=== PATIENT | female | born 1965 | race Caucasian/White ===

== ENCOUNTER 2019-08-12 17:35 | Observation (INO) ==
--- NOTE | 2019-08-12 18:03 | Diag Imaging Result Doc PS360 ---
EXAM: CHEST-PORTABLE 08/12/2019 HISTORY: stroke like symptoms TECHNIQUE: AP portable at 1757 COMMENT: There is no evidence of acute cardiac or pulmonary disease. Compared to 03/12/2013 the lungs are not as well-expanded but otherwise are has been no significant change. IMPRESSION: No acute disease. Electronically signed by Jewel Hall 08/12/2019 6:01 PM
--- NOTE | 2019-08-12 18:12 | Diag Imaging Result Doc PS360 ---
EXAM: CT HEAD W/O CONTRAST 08/12/2019 HISTORY: STROKE SYMPTOMS TECHNIQUE: This exam was performed using automated exposure control, adjustment of mA or kV according to patient size, and/or use of iterative reconstruction technique. COMMENT: There is no evidence of mass effect, bleed, or abnormal extra-axial fluid collection. The calvarium is intact. The visualized paranasal sinuses are clear. IMPRESSION: No evidence of acute intracranial disease. Electronically signed by Jewel Hall 08/12/2019 6:10 PM
[2019-08-12 18:50] LABS: BASO# 0.02 X1000 (0.0-0.2); BASO% 0.2 % (0.0-0.8); EOS# 0.12 X1000 (0.0-0.7); EOS% 1.3 % (0.0-10.0); HEMATOCRIT 39.6 % (37.0-47.0); HEMOGLOBIN 13.3 g/dL (12.0-16.0); IMM GRAN# 0.02 X1000 (0.0-0.04); IMM GRAN% 0.2 % (0.0-0.5); LYMPH# 1.94 X1000 (1.2-3.4); LYMPH% 20.3 % (20.5-51.1); MCH 28.9 PG (27-31); MCHC 33.6 g/dL (33-37); MCV 85.9 FL (81-99); MONO# 0.48 X1000 (0.11-0.59); MPV 9.5 FL (7.4-10.4); PLT 296 X1000 (130-400); RBC 4.61 XMIL (4.2-5.4); RDW 11.8 % (11.5-14.5); WBC 9.58 X1000 (4.8-10.8)
[2019-08-12 18:54] LABS: INR 0.94; PROTIME 12.7 Seconds (11.0-16.0); PTT 29.5 Seconds (22.3-41.8)
--- NOTE | 2019-08-12 19:01 | PROVIDER DOCUMENTATION ---
This chart was entered by Lakisha Rossi Scribe, acting as scribe for Rocio Prabhakar MD. HPI-Neurological Disorder - General Source: patient, family - History of Present Illness-Neuro Onset/Duration: reports: abrupt, just prior to arrival, 1/2 hour ago Timing: reports: still present Character of Altered Mental Status: reports: N/A Any recent trauma/injury?: reports: none Character of Deficits: reports: impaired speech New weakness or altered sensation location:: reports: none Cognitive Baseline: alert, oriented x3 Gait Baseline: walks without assistance Associated Symptoms: reports: denies symptoms <Rocio Prabhakar - Last Filed: 08/12/19 18:58> <Romario Lucero - Last Filed: 08/12/19 20:41> - General Chief Complaint: Stroke-Like Symptoms Stated Complaint: STROKE LIKE SYMPTOMS Time Seen by Provider: 08/12/19 17:45 Allergies/Adverse Reactions: Patient Allergies Allergy/AdvReac Type Severity Reaction Status Date / Time No Known Allergies Allergy Verified 08/31/14 23:07 Home Medications: Home Medication List Medication Instructions Recorded Confirmed Last Taken Type Lisinopril 20 mg PO QHS 08/31/14 08/12/19 08/30/14 History ATORVAstatin [Lipitor] 20 mg PO DAILY 08/12/19 08/12/19 Unknown History Dapagliflozin/Metformin HCl 1 tab PO BID 08/12/19 08/12/19 Unknown History [Xigduo Xr 5 mg-1,000 mg Tablet] Insulin Glargine/Lixisenatide 26 units SQ DAILY 08/12/19 08/12/19 Unknown History [Soliqua 100 Unit-33 Mcg/ml Pen] Omeprazole 40 mg PO DAILY 08/12/19 08/12/19 Unknown History - History of Present Illness-Neuro Nature of Presenting Problem: 54 yowf presents w/ to er w/cc sudden onset slurred speech 30 mins travel pta. pt sts she was waiting eat when symptoms occurred at home. pt checked blood pressure travel pta and was 140s/90s. pt has hx of DM. nonsmoker and doesn't drink alcohol. pt is tearful in room. (Rocio Prabhakar) Review of Systems - Adult - REVIEW OF SYSTEMS - ADULT Constitutional: reports: no symptoms reported. denies: fever, fatique, night sweats Eyes: reports: no symptoms reported Ears, Nose, Mouth & Throat: reports: no symptoms reported Cardiovascular: reports: no symptoms reported Respiratory: reports: no symptoms reported Gastrointestinal: reports: no symptoms reported Genitourinary: reports: no symptoms reported Musculoskeletal: reports: no symptoms reported Integumentary: reports: no symptoms reported Neurological: reports: see HPI, slurred speech. denies: loss of balance, seizure, syncope Psychiatric: reports: no symptoms reported Endocrine: reports: no symptoms reported Hematologic/Lymphatic: reports: no symptoms reported Allergic/Immunologic: reports: no symptoms reported All Other Systems: Reviewed and Negative <Rocio Prabhakar - Last Filed: 08/12/19 18:58> Past History - Adult - PAST MEDICAL HISTORY-ADULT Review of Records: reports: Old Records Reviewed, Nursing Assessment Review, Medications Reviewed, Social history reviewed & non-contributory. Major Childhood Illnesses: reports: denies history Cardiovascular: reports: HTN Respiratory: reports: denies history Gastrointestinal: reports: denies history Obstetrical/Gynecological: reports: denies history Genitourinary: reports: denies history Musculoskeletal: reports: denies history Neurological: reports: denies history Endocrine/Immune: reports: Diabetes Other Conditions: reports: denies history - PRIOR SURGERIES/PROCEDURES Surgical/Procedure History: reports: cholecystectomy, hysterectomy - IMMUNIZATION STATUS Childhood Immunizations: See Nurse Assessment Flu Vaccine: See Nurse Assessment - FAMILY HISTORY Family History: reviewed, not pertinent - SOCIAL HISTORY Smoking: non-smoker Substance Use: none/never <Rocio Prabhakar - Last Filed: 08/12/19 18:58> Physical Exam- Neurological - Physical Exam-Neuro Initial Vital Signs Reviewed: Yes General Appearance: alert, mild distress. negative: cachetic, lethargic, obtunded Eye Exam: bilateral eye: normal inspection, PERRL, EOMI HENMT: normocephalic/atraumatic, moist mucous membranes, normal ENT inspection Head Injury: no evidence of injury Neck: non-tender, full range of motion, supple, normal inspection Respiratory: chest non-tender, lungs clear, normal breath sounds Cardiovascular: normal peripheral pulses, regular rate, rhythm Abdominal Exam: normal bowel sounds, non tender, soft Lymphatic: no adenopathy Peripheral Pulses: radial (R): 2+, radial (L): 2+ Extremity: normal range of motion, non-tender, normal inspection nut former Exam: normal hearing, PERRL, abnormal speech (slight slurred, having trouble speaking). negative: normal speech Motor/Sensory: no motor deficit, no sensory deficit. negative: sensory deficit, weak motor strength RUE, weak motor strength LUE, weak motor strength RLE, weak motor strength LLE Neurologic: negative: aphasia, motor weakness, sensory deficit Integumentary: normal color, normal turgor, warm/dry Psych/Mental Status: oriented x 3, anxious, tearful. negative: normal mood/affect, normal thought content, normal thought process - Glascow Coma Scale Best Eye Response: (4) open spontaneously Best Verbal Response: (5) oriented Best Motor Response: (6) obeys commands Total Glascow Score: 15 <Rocio Prabhakar - Last Filed: 08/12/19 18:58> Progress - PLAN OF CARE/RESULTS Result Diagrams: 08/12/19 18:20 - CONSULTS/PCP/HOSPITALIST Notification #1 *Consult/PCP/Hospitalist*: Dr Blum Time Discussed: 18:59 Consult Disposition: other (get MRI, no tPA due to low NIH score and keep patient at [facility]) <Rocio Prabhakar - Last Filed: 08/12/19 18:58> - PLAN OF CARE/RESULTS Result Diagrams: 08/12/19 18:20 08/12/19 18:20 <Romario Lucero - Last Filed: 08/12/19 20:41> - PLAN OF CARE/RESULTS Progress/Plan/Lab Results: Vital Signs - 8 hr 08/12/19 17:38 08/12/19 18:04 08/12/19 18:05 Temperature 97.4 F L Pulse Rate 98 H 88 Respiratory Rate 20 12 Blood Pressure 163/90 158/110 O2 Sat by Pulse Oximetry 100 99 100 08/12/19 18:15 08/12/19 18:30 08/12/19 18:33 Temperature Pulse Rate 90 90 89 Respiratory Rate 14 22 19 Blood Pressure 167/91 O2 Sat by Pulse Oximetry 99 99 100 08/12/19 18:45 Temperature Pulse Rate 89 Respiratory Rate 10 L Blood Pressure O2 Sat by Pulse Oximetry 99 Laboratory Results - last 24 hr 08/12/19 08/12/19 08/12/19 18:20 18:20 18:20 WBC 9.58 RBC 4.61 Hgb 13.3 Hct 39.6 MCV 85.9 MCH 28.9 MCHC 33.6 RDW Std Deviation 11.8 Plt Count 296 MPV 9.5 Immature Gran % (Auto) 0.2 Neut % (Auto) 73.0 Lymph % (Auto) 20.3 L [place] % (Auto) 5.0 Eos % (Auto) 1.3 Baso % (Auto) 0.2 Immature Gran # (Auto) 0.02 Neut # (Auto) 7.00 H Lymph # (Auto) 1.94 [place] # (Auto) 0.48 Eos # (Auto) 0.12 Baso # (Auto) 0.02 PT 12.7 INR 0.94 PTT (Actin FS) 29.5 Sodium 135 L Potassium 4.2 Chloride 94 L Carbon Dioxide 22 L Anion Gap 19 BUN 16 Creatinine 0.8 Estimated GFR/1.73 m2 > 60 BUN/Creatinine Ratio 20 Glucose 138 H POC Glucose Calculated Osmolality 273 Calcium 10.1 Total Bilirubin 0.34 AST 22 ALT 37 H Alkaline Phosphatase 99 Troponin T Total Protein 7.0 Albumin 4.4 Globulin 2.6 Albumin/Globulin Ratio 1.7 Urine Source Urine Color Urine Turbidity Urine pH Ur Specific [place] Urine Protein Ur Glucose (Stick) Ur Ketones (Stick) Urine Blood Urine Nitrite Urine Bilirubin Urobilinogen Dipstick Urine Leukocytes Urine WBC (Auto) Urine RBC (Auto) U Epithel Cells (Auto) Urine Bacteria (Auto) 08/12/19 08/12/19 08/12/19 18:20 18:30 20:18 WBC RBC Hgb Hct MCV MCH MCHC RDW Std Deviation Plt Count MPV Immature Gran % (Auto) Neut % (Auto) Lymph % (Auto) [place] % (Auto) Eos % (Auto) Baso % (Auto) Immature Gran # (Auto) Neut # (Auto) Lymph # (Auto) [place] # (Auto) Eos # (Auto) Baso # (Auto) PT INR PTT (Actin FS) Sodium Potassium Chloride Carbon Dioxide Anion Gap BUN Creatinine Estimated GFR/1.73 m2 BUN/Creatinine Ratio Glucose POC Glucose 129 H D Calculated Osmolality Calcium Total Bilirubin AST ALT Alkaline Phosphatase Troponin T < 0.010 Total Protein Albumin Globulin Albumin/Globulin Ratio Urine Source CLEAN CATCH Urine Color YELLOW Urine Turbidity CLEAR Urine pH 6.0 Ur Specific [place] 1.027 Urine Protein NEGATIVE Ur Glucose (Stick) >1000 A Ur Ketones (Stick) 40 A Urine Blood NEGATIVE Urine Nitrite NEGATIVE Urine Bilirubin NEGATIVE Urobilinogen Dipstick NORMAL Urine Leukocytes NEGATIVE Urine WBC (Auto) <10 Urine RBC (Auto) <10 U Epithel Cells (Auto) <10 Urine Bacteria (Auto) NEGATIVE Orders Category Date Time Status Cardiac Monitoring DIRECTED Care 08/12/19 17:41 Active Finger Stick Blood Sugar (ED) DIRECTED Care 08/12/19 17:41 Active Saline Loc NOW Care 08/12/19 17:41 Active CHEST-PORTABLE [RAD] Stat Exams 08/12/19 17:[address] HEAD W/O CONTRAST [CT] Stat Exams 08/12/19 17:41 Completed MRI BRAIN W/WO CONTRAST [MRI] Stat Exams 08/12/19 19:00 Ordered CBC WITH ELECTRONIC DIFF [HEME] Stat Lab 08/12/19 18:20 Completed COMPREHENSIVE METABOLIC PANEL [CHEM] Stat Lab 08/12/19 18:20 Completed PROTIME WITH INR [COAG] Stat Lab 08/12/19 18:20 Completed PTT [COAG] Stat Lab 08/12/19 18:20 Completed TROPONIN T Stat Lab 08/12/19 18:20 Completed URINALYSIS W/POSS RFLX CULT [URINALYSIS] Stat Lab 08/12/19 20:18 Completed URINE DRUG SCREEN Stat Lab 08/12/19 20:18 Received EKG [EKG] Stat Ther 08/12/19 17:41 Ordered Pt signed out to me by BRAYAN Maxwell, pt is asymptomatic, spoke with hospitalist and will admit for neuro and MRI in the am (Romario Lucero) Departure - Departure Date of Disposition Decision: 08/12/19 Time of Disposition Decision: 18:33 Certified Medical Emergency: Emergent - Critical Care Note This patient required my direct & personal management of CC.: No <Rocio Prabhakar - Last Filed: 08/12/19 18:58> <Romario Lucero - Last Filed: 08/12/19 20:41> - Departure DIAGNOSIS: Expressive aphasia Disposition: ADMITTED INPATIENT 09 Condition: Good Referrals and Follow-Ups: Asia Anglin MD [Primary Care Provider] - Attestation - Physician/ OSMANI Attestation Patient care was provided by Advanced Practice Provider:: No The physician spent face to face time with patient:: Yes Advanced Practice Provider documentation review:: Supervising physician onsite and consulted in the evaluation and care of this patient. The physician did have a face to face encounter with the patient. <Rocio Prabhakar - Last Filed: 08/12/19 18:58> - NIH Stroke Scale Level of Consciousness: 0-Alert LOC Questions (ask month and age): 0-Answers Both Correctly LOC Commands (ask to open & close eyes;make a fist, let go): 0-Obeys Both Correctly Best Gaze (horizontal eye movement): 0-Normal Visual (use finger movement, counting or visual threat): 0-No Visual Loss Facial Palsy (show teeth or raise eyebrows & close eyes tght: 0-Symmetrical Movement Motor Function-left arm: 0-Normal Motor Function-right arm: 0-Normal Motor Function-left le-Normal Motor Function-right le-Normal Limb Ataxia([id number], or heel to kemp): 0-No Ataxia Sensory(pin prick to face,arms,trunk,legs-compare side/side): 0-No Ataxia Best Language(name item/read sentence.Ex-Down to Earth): 1-Mild to Moderate Aphasia Dysarthria(Pt read words or say words Ex.Mama,Tip-Top,Thanks: 1-Mild-Mod Slurring Words NIH Total Score: 2 Modified [place] Score Criteria: 0-no symptoms <Rocio Prabhakar - Last Filed: 08/12/19 18:58> This chart was documented by the indicated scribe, (Lakisha Rossi Scribe) and accurately reflects the services I performed and decisions made by Aki denise Mai Huu, MD, as attested by the provider's signature.
[2019-08-12 19:31] LABS: AGAP 19; ALB/GLOB RATIO 1.7; ALBUMIN 4.4 g/dL (3.5-5.0); ALKALINE PHOSPHATASE 99 U/L (32-104); BUN 16 mg/dL (8-22); CALCIUM 10.1 mg/dL (8.8-10.2); CHLORIDE 94 mmol/L (98-107); COSMO 273; CREATININE 0.8 mg/dL (0.5-0.9); ESTIMATED GFR > 60; GLUCOSE 138 mg/dL (70-104); GOT 22 U/L (10-30); GPT 37 U/L (10-36); POTASSIUM 4.2 mmol/L (3.5-5.1); SODIUM 135 mmol/L (136-145); TCO2 22 mmol/L (25-35); TOTAL BILIRUBIN 0.34 mg/dL (0.20-1.00)
[2019-08-12 20:31] LABS: URINE SOURCE CLEAN CATCH
[2019-08-12 20:36] LABS: BILIRUBIN URINE NEGATIVE (NEGATIVE); BLOOD URINE NEGATIVE (NEGATIVE); COLOR YELLOW; GLUCOSE URINE >1000 mg/dL (NEGATIVE); KETONE URINE 40 mg/dL (NEGATIVE); LEUKOCYTES URINE NEGATIVE (NEGATIVE); NITRITE URINE NEGATIVE (NEGATIVE); PROTEIN URINE NEGATIVE (NEGATIVE); SP GRAVITY URINE 1.027; TURBIDITY URINE CLEAR (CLEAR); UR EPITHELIAL CELLS <10 /HPF (<10); URINE BACTERIA NEGATIVE /HPF; URINE RBC <10 /HPF (<10); URINE WBC <10 /HPF (<10); UROBILINOGEN URINE NORMAL (NORMAL)
[2019-08-12] MEDS ORDERED: KLOR-CON PO ONE (20:40)
[2019-08-12 20:47] LABS: UR AMPHETAMINES QUAL NONE DETECTED (NONE DETECT); UR BARBITUATES QUAL NONE DETECTED (NONE DETECT); UR BENZODIAZEPIN QUAL NONE DETECTED (NONE DETECT); UR CANNABINOIDS QUAL NONE DETECTED (NONE DETECT); UR COCAINE QUAL NONE DETECTED (NONE DETECT); UR METHADONE QUAL NONE DETECTED (NONE DETECT); UR OPIATES QUAL NONE DETECTED (NONE DETECT); UR OXYCODONE QUAL NONE DETECTED (NONE DETECT); UR PCP QUAL NONE DETECTED (NONE DETECT)
--- NOTE | 2019-08-12 20:54 | EKG Report ---
Test Performed on : 08/12/2019 6:23:52 PM Test Reason : Stroke like symptoms Blood Pressure : / mmHG Vent. Rate : 090 BPM Atrial Rate : 090 BPM P-R Int : 134 ms QRS Dur : 076 ms QT Int : 374 ms P-R-T Axes : 034 011 029 degrees QTc Int : 457 ms Normal sinus rhythm. Low voltage QRS Borderline ECG When compared with ECG of 24-MAR-2010 18:47, No significant change was found Unconfirmed Result
[2019-08-12] MEDS: HUMALOG SUBQ SCH (21:00)
[2019-08-12] MEDS: PRINIVIL PO SCH (21:04)
[2019-08-12] MEDS ORDERED: NS 1,000 ML IV ONE (21:10)
[2019-08-12 21:21] LABS: HEMOGLOBIN A1C 7.8 % (4.8-6.0)
--- NOTE | 2019-08-12 22:14 | HISTORY AND PHYSICAL ---
CHIEF COMPLAINT: Stroke-like symptoms. HISTORY OF PRESENT ILLNESS: Ms. Castanon is a pleasant 54-year-old female who was sitting eating dinner around 30 minutes prior to arrival. She had sudden onset slurring of speech as well as expressive aphasia. She stated that she felt as if she could not get her words out or complete her sentences despite knowing what she wanted to say. She does have a history of diabetes mellitus type 2 now insulin dependent, hypertension and hyperlipidemia. Checked her blood sugar at home. It was normal. Blood pressure was 140s/90s prior to arrival. CT scan and laboratory data completed in the emergency room was grossly normal. The ER provider spoke to Dr. Burris in [place], who recommended observation admission with an MRI tomorrow morning. PAST MEDICAL HISTORY: Hypertension, diabetes mellitus type 2 now insulin dependent, hyperlipidemia. PREVIOUS SURGICAL HISTORY: Cholecystectomy, hysterectomy. SOCIAL HISTORY: Does not work. Lives at home with her and child. No alcohol, tobacco or illicit drugs. FAMILY HISTORY: Mother had breast cancer, Parkinson's and diabetes. Father had coronary artery disease status post myocardial infarction. ALLERGIES: No known drug allergies. HOME MEDICATIONS: Xigduo XR 03/1000 one p.o. b.i.d., Lipitor 20 mg p.o. daily, Soliqua 26 units subcutaneous daily, lisinopril 20 mg p.o. daily, omeprazole 40 mg p.o. daily. REVIEW OF SYSTEMS: Fourteen-point review of systems conducted with the patient. She does have a dull headache in the crown of her head. She has a left-sided area right behind her evangelical where she hit her head a couple of months ago which she states has been kind of hurting today. It is mildly tender to palpation. Denies any other neurological symptoms. All other systems reviewed and found to be negative. PHYSICAL EXAMINATION: VITAL SIGNS: Temperature 97.4, pulse 92, respirations 14, blood pressure 155/87, oxygen saturation 97% on room air. GENERAL: Pleasant 54-year-old female lying in the ER stretcher, alert and oriented times 3, surrounded by large family, in no acute distress. HEENT: Head is atraumatic, normocephalic. PERRL. NECK: Supple. No JVD. No thyromegaly. Trachea is midline. No cervical lymphadenopathy. CARDIAC: S1, S2 appreciated. No murmurs, gallops, rubs. LUNGS: Clear to auscultation bilaterally. No rhonchi, wheezes, rales. Symmetric rise and fall with respirations. ABDOMEN: Soft, nondistended, nontender. Bowel sounds present all 4 quadrants, normoactive. No pulsatile mass. No organomegaly. EXTREMITIES: No clubbing, cyanosis or edema. Two-plus pedal pulses bilaterally. GENITOURINARY: No bladder distention. Patient voids. Otherwise deferred. NEUROLOGICAL: Alert and oriented times 3. Cranial nerves 2 through 12 grossly intact. No slurring of speech. No palmar drift. No facial asymmetry. DIAGNOSTIC DATA: CT of the head: No acute intracranial process. Chest x-ray: No acute disease. LABORATORY DATA: CBC within normal limits. Coagulation studies within normal limits. Sodium 135. Potassium 4.2. Chloride 94. Carbon dioxide 22. BUN 16. Creatinine 0.8. Glucose 138. Urine: Greater than 1000 glucose, 40 ketones. Toxicology screen is negative. ASSESSMENT AND PLAN: 1. Transient ischemic attack. We will put in observation to rule out CVA. Check an MRI, carotid Doppler and echocardiogram. 2. Diabetes mellitus type 2 with hyperglycemia, now insulin dependent. Continue long-acting insulin. Start patient on a diabetic diet. Sliding scale insulin with fingerstick blood sugar q.a.c. and at bedtime. 3. Hypertension. Continue lisinopril tomorrow morning. We will allow for permissive hypertension tonight. 4. Hyperlipidemia. Check lipid profile. Continue statin. Further recommendation per patient clinical course. Dictated by RAMO Dumont for Camille Foster MD cc: RAMO Dumont MD Marlin D. Gill, MD Pt will be started on higher dose Lipitor and switch ASA to plavix 75mg daily. Stroke work as noted as above along permissive HTN in the first 24hrs. Exam was essentially benign without any deficits. Consider complicated migraines if MRI negative. MTDD
[2019-08-12] MEDS ORDERED: TYLENOL PO ONE (23:46)
[2019-08-12] MEDS ORDERED: ZOFRAN IV ONE (23:46)
[2019-08-13] MEDS ORDERED: ZOFRAN IV PRN (00:57)
[2019-08-13] MEDS: LOVENOX SUBQ SCH (02:28)
[2019-08-13 05:46] LABS: AGAP 14; BUN 13 mg/dL (8-22); CALCIUM 9.1 mg/dL (8.8-10.2); CHLORIDE 98 mmol/L (98-107); COSMO 268; CREATININE 0.8 mg/dL (0.5-0.9); ESTIMATED GFR > 60; GLUCOSE 87 mg/dL (70-104); POTASSIUM 4.3 mmol/L (3.5-5.1); SODIUM 134 mmol/L (136-145); TCO2 22 mmol/L (25-35)
[2019-08-13] MEDS: HUMALOG SUBQ SCH ×4 (06:00→21:37)
--- NOTE | 2019-08-13 07:13 | HISTORY AND PHYSICAL ---
CHIEF COMPLAINT: Stroke-like symptoms. HISTORY OF PRESENT ILLNESS: Very pleasant 54-year-old female comes into the emergency room tonight with the complaint of sudden onset of slurring of speech and patient states that she was unable to get the words out to complete a sentence. She stated that she knew what she wanted to say but she was just having trouble forming words or expressing herself. She does have a history of diabetes mellitus and hyperlipidemia. States that her blood pressure normally runs normal but she is on lisinopril 20 mg more for renal protection according to the patient. CT scan and laboratory data in the emergency room were grossly normal. The ER provider spoke with Dr. Burris in [place]. He recommended observation admission with an MRI tomorrow morning. PAST MEDICAL HISTORY: 1. Hypertension. 2. Diabetes mellitus type 2, now insulin dependent. 3. Hyperlipidemia. PREVIOUS SURGICAL HISTORY: 1. Cholecystectomy. 2. Hysterectomy. SOCIAL HISTORY: Lives with her . No alcohol, tobacco or illicit drugs. She does not work. FAMILY HISTORY: Father had coronary artery disease with myocardial infarction. Mother had breast cancer, Parkinson's, diabetes. ALLERGIES: No known drug allergies. HOME MEDICATIONS: 1. Xigduo XR 03/1000 one p.o. b.i.d. 2. Atorvastatin 20 mg p.o. daily. 3. Soliqua 26 units daily. 4. Lisinopril 20 mg p.o. daily. 5. Omeprazole 40 mg p.o. daily. REVIEW OF SYSTEMS: Fourteen point review of systems conducted with the patient. She does complain of a dull headache in the crown of her head which she has had all day. Also states that she hit her head around 4 months ago just behind her left christian and that area has been sore today, mildly tender to palpation. Denies any neurological symptoms at this time. All other systems were reviewed and found to be negative. PHYSICAL EXAMINATION: VITAL SIGNS: Temp 97.4 degrees, pulse 92, respirations 14, blood pressure 155/87, oxygen saturation 97% on room air. GENERAL: Pleasant 54-year-old female lying in the ER stretcher. She is alert and oriented x3. She is in no acute distress. A large family is gathered around her, very supportive. HEENT: Head is atraumatic, normocephalic. Pupils equal, round and reactive to light. Extraocular eye movements intact. Sclerae anicteric. Conjunctivae pink. Oral mucosa is moist. NECK: Supple. No JVD. No thyromegaly. Trachea is midline. No cervical lymphadenopathy. CARDIAC: S1, S2 appreciated. No murmurs, gallops, rubs. LUNGS: Clear to auscultation bilaterally. No rhonchi, wheezes, rales. Symmetrical rise and fall with INCOMPLETE REPORT - DICTATION ENDS HERE Dictated by RAMO Dumont for Camille Foster MD cc: RAMO Dumont MD
[2019-08-13] MEDS ORDERED: [UNRECOGNIZED DRUG - OTHER] SQ SCH (09:00)
[2019-08-13] MEDS ORDERED: NON-FORMULARY MED (Omeprazole 40 MG) PO SCH (09:00)
[2019-08-13] MEDS: LIPITOR PO SCH (10:26)
[2019-08-13] MEDS: ASPIRIN PO SCH (10:26)
--- NOTE | 2019-08-13 10:35 | Diag Imaging Result Doc PS360 ---
EXAM: MRI BRAIN W/WO CONTRAST 08/13/2019 HISTORY: expressive aphasia TECHNIQUE: T1 sagittal, axial and post gadolinium-enhanced axial with coronal reformation, axial T2, FLAIR, DWI and coronal gradient echo. COMMENT: There is no evidence of mass effect, bleed, or abnormal extra-axial fluid collection. There is no evidence of restricted diffusion. There is some motion artifact on the post gadolinium-enhanced images however no evidence of abnormal gadolinium enhancement is present. IMPRESSION: Normal MRI of the brain. Electronically signed by Jewel Hall 08/13/2019 10:33 AM
[2019-08-13] MEDS: TYLENOL PO PRN (12:38)
[2019-08-13] MEDS ORDERED: PHENERGAN IV PRN (14:12)
[2019-08-13] MEDS ORDERED: SODIUM CHLORIDE 0.9% INJ PRN (14:12)
--- NOTE | 2019-08-13 16:19 | PROGRESS NOTE ---
DATE: 08/13/2019 SUBJECTIVE: This patient is resting comfortably in bed. She is complaining of some headache. MRI of the head has been negative. Pending echocardiogram and carotic ultrasound of the neck. Apparently this patient started having aphasia. Normally her blood pressure at home is in the 110s and she noticed yesterday that it was in the 140s and when she tried to talk to the about that, she was not able to express what she wanted to say, she was not able to talk. So they brought this patient over here, but the symptoms disappeared. MRI of the head negative. CT of the head negative. Chest x-ray negative as well. Urine toxicology negative. Urine glucose showed more than 1,000, but probably that is a mistake. Her glucose level has been stable and the hemoglobin A1c is 7.8. OBJECTIVE: Vital Signs: Temperature 97.7 degrees, pulse 86, respiratory rate 15, blood pressure 145/72, oxygen saturation 99 on room air. HEENT: Head normocephalic. No trauma. PERRLA. Neck: Supple. No JVD. No masses. Central trachea. Chest: Clear to auscultation. No wheezing. No rales. Abdomen: Soft. Some tenderness to palpation at the level of the periumbilical area and epigastric area. Neurological: The patient is alert. She is oriented x3. No focal neurological deficits. LABORATORY: Sodium 134, potassium 4.3, chloride 98, bicarbonate 22, BUN 13, creatinine 0.8, glucose 83, calcium 9.1. ASSESSMENT AND PLAN: 1. Likely transient ischemic attack. MRI of the head has been negative. Pending carotic Doppler ultrasound results and echocardiogram. This patient seems to be doing better. She is still complaining of some headache and her blood pressure is still elevated, even though at home normally her blood pressure is in the 110s. 2. Hypertension. Like I mentioned before, this patient has been using lisinopril at home which has been scheduled for tonight. Normally at home her blood pressure is in the 110s but during this hospitalization it has been more elevated than that, going up and down, mostly between 140s and 160s. The highest has been 181/91 and the lowest 109/59. 3. Type 2 diabetes. Seems to be decently controlled. Hemoglobin A1c is 7.8. I will continue with the same management for now, no changes. 4. Mild nausea with no vomiting. As per the patient, this kind of issue has been on and off for some time now and actually she has been following Dr. Metzger as an outpatient. She has been scoped before with no lesions found. 5. Hyperlipidemia. Lipid profile looks good. Continue with statins. 6. Obesity with a body mass index of 31.5. Aware. cc: Brennan Escobar MD
--- NOTE | 2019-08-13 20:46 | ECHO REPORT ---
ORDER DATE: 08/13/2019 MEASUREMENTS: Septal thickness 0.7, left ventricular internal diameter in diastole 4.4, posterior wall thickness 0.8, left ventricular internal diameter in systole 2.6, aortic root 2.9, left atrium 3.1. SUMMARY: 1. Adequate quality study. 2. Aortic valve is trileaflet and opens normally on 2-dimensional images. Peak gradient across the aortic valve is 10 mmHg. Mitral, tricuspid, and pulmonic valves are without evidence of structural abnormality with trace tricuspid regurgitation. The estimated systolic PA pressure by Doppler is 35 mmHg. The aortic root is normal in size. 3. Normal left ventricular dimensions demonstrated. Estimated left ventricular ejection fraction appears to be at least 70%. No regional wall motion abnormalities are evident. Doppler suggests grade 1 left ventricular diastolic dysfunction. Left atrium, right atrium, and right ventricle are normal in size with grossly preserved right ventricular systolic function. 4. No pericardial effusion. 5. Appearance of inferior vena cava suggests normal central venous pressure. CONCLUSIONS: 1. No significant valvular abnormality evident. 2. Normal left ventricular systolic function without wall motion abnormality evident. 3. Grade 1 left ventricular diastolic dysfunction suggested. cc: MD Solo Patel CRNP
--- NOTE | 2019-08-13 20:56 | CONSULTATION ---
DATE OF CONSULTATION: 08/13/2019 HISTORY OF PRESENT ILLNESS: Ms. Castanon is 54 years old, and she has history worrisome for TIA but also concerning for migraine. History from the patient is that she had a busy afternoon yesterday. She was resting in recliner and attempted to speak to her and found herself unable to express herself with speech. She could make noise but seemed unable to make words. Eventually, she got her 's attention, and she did not have trouble understanding what he said. She did not notice vision disturbance, weakness in the limbs, gait difficulty, numbness, or other neurologic deficit. Within about 15 or 20 minutes she was on the way to the emergency room and symptoms were improving. She believes she did not get completely back to normal, and speech became more difficult again with similar features. She believes she was not completely recovered for 1 to 2 hours. She has been well since then. She has never had an episode like this before. She has a baseline headache most days. This is mostly posterior dull aching discomfort, which has been present since head injury a few years ago. Headache was no worse than baseline during this episode or following the episode yesterday. There is not history of recent head injury. She has never had diagnosed stroke, seizure, other neurologic event. She has history of episodic headache, often associated with cyclical vomiting. She did not have that pattern of headache with her recent episode. She has never had headache associated with neurologic deficit. Workup here includes brain MRI done with and without contrast showing nothing remarkable. Initial noncontrast CT was also unremarkable. She has been afebrile. Heart rate has been stable 80s-90s. Systolic blood pressures have ranged 100s to 160s. There is past history of diabetes mellitus, dyslipidemia, hypertension, probably migraine as above. She does not smoke cigarettes. Caffeine intake is minimal and variable. She has not had caffeine withdrawal problems. HOME MEDICINES: Include daily aspirin, atorvastatin, insulin, lisinopril. She reports taking her medicines as directed. Also Xigduo (dapagliflozin/metformin). PHYSICAL EXAMINATION: On exam, Ms. aCstanon is awake, alert, attentive, and appropriate. Speech is not dysarthric. Language function is intact on careful bedside testing of repeating, naming, comprehension, fluency, reading. I did not test handwriting. She followed commands requiring right/left distinction and digit distinction very well. Memory is good. Head and neck are unremarkable. There is no meningismus. Visual [place] are full tested by confrontational finger counting. Extraocular movements are full. Facial motility is symmetric. Gag is intact. Tongue is midline. She can hear. Shoulder shrug is equal. Strength is normal in the arms and legs. Tone is symmetric in the limbs. She did well on [id number] testing bilaterally. She reports good pinprick appreciation over the hands. Reflexes are trace at the ankles and 1+ symmetrically at the wrists. Plantar response is silent bilaterally. Proprioception is good at the great toe MTP joint bilaterally. I did not test her gait. IMPRESSION: 1. Transient difficulty communicating with speech. Features sounds like expressive dysphasia without other deficit. In light of her relatively young age and history of headache, migraine may be statistically more likely than ischemic event. Transient ischemic attack would not typically have 1-2 hour duration. Negative MRI is reassuring. She certainly has risk factors for cerebrovascular ischemic problems, and transient ischemic event is not excluded. I agree with plans for aggressive workup for possible ischemic explanation. If not already done, echocardiogram and carotid ultrasound could be considered. We might eventually consider CT angiogram of the brain. I would continue aspirin, statin, Lovenox for DVT prophylaxis. I would continue aggressive management of blood sugar and cautious management of blood pressure. Further plans will depend on her clinical course and results of workup. 2. Prior episodic headache typical of migraine. We might consider migraine management electively, not urgent, possibly as outpatient. 3. History of episodic vomiting, possibly cyclical vomiting, which may be a migraine phenomena. 4. She has some clinical evidence of peripheral neuropathy, presumed diabetic neuropathy. I do not think this problem needs urgent attention. Thanks for asking Neurology to see Ms. Castanon. cc: MD CRISTOBAL Connors III
[2019-08-13] MEDS: PRINIVIL PO SCH (21:37)
[2019-08-14 06:04] LABS: AGAP 14; BUN 16 mg/dL (8-22); CALCIUM 9.6 mg/dL (8.8-10.2); CHLORIDE 99 mmol/L (98-107); COSMO 280; CREATININE 0.7 mg/dL (0.5-0.9); ESTIMATED GFR > 60; GLUCOSE 184 mg/dL (70-104); POTASSIUM 4.1 mmol/L (3.5-5.1); SODIUM 137 mmol/L (136-145); TCO2 24 mmol/L (25-35)
[2019-08-14] MEDS: TYLENOL PO PRN (06:40)
[2019-08-14] MEDS: HUMALOG SUBQ SCH ×2 (06:42→11:32)
[2019-08-14 08:06] VITALS: BP 106/74
[2019-08-14] MEDS: LOVENOX SUBQ SCH (10:09)
[2019-08-14] MEDS: ASPIRIN PO SCH (10:09)
[2019-08-14] MEDS: LIPITOR PO SCH (10:09)
--- NOTE | 2019-08-14 11:54 | DISCHARGE SUMMARY ---
ADMISSION DATE: 08/12/2019 DISCHARGE DATE: DISCHARGE DIAGNOSES: 1. Transient difficulty communicating with speech, probably related to migraine. 2. Initially admitted to rule out a brain ischemic event. MRI, carotic ultrasound and echocardiogram with no evidence of acute disease. 3. History of cyclical vomiting, probably related to migraines, peripheral neuropathy, aware. 4. Hypertension. Stable. 5. Type 2 diabetes with a hemoglobin A1c of 7.8. 6. Hyperlipidemia. 7. Obesity with a body mass index of 31.5. PROCEDURES PERFORMED: Chest x-ray dated 08/12/2019. Impression: No acute disease. Head CT scan dated 08/12/2019. Impression: No evidence of acute intracranial disease. Echocardiogram dated 08/13/2019. Conclusion: No significant valvular abnormality. Normal left ventricular systolic function without wall motion abnormality. Ejection fraction at least 70%. Grade 1 left ventricular diastolic dysfunction. Brain MRI dated 08/13/2019. Impression: Normal MRI of the brain. Carotic ultrasound dated 08/12/2019. Impression: Stenosis around 0 to 39 percent bilaterally. No evidence of obstruction. HOSPITAL COURSE: A 54-year-old female with a past medical history of hypertension, diabetes, hyperlipidemia, nausea, vomiting, and headaches who presented to the emergency department and was admitted on 08/12/2019. Apparently, this patient was the sitting, eating dinner around 30 minutes prior to arrival when she had a sudden onset of expressive aphasia. She states that she felt as if she could not get the words out or complete her sentences despite knowing what she wanted to say. She checked her blood sugar at home and it was normal. She checked her blood pressure and it was around 140s over 90s prior to arrival. CT scan and laboratory data completed in the emergency room was grossly normal. The ER doctor provider spoke with Dr. Burris in [facility], who recommended observation, admission with an MRI in the morning, which has been done and is negative. We also completed the workup with a carotid ultrasound and echocardiogram that did not show any acute problems. Ejection fraction 70 percent and no obstruction. We noticed at the beginning that the blood pressure was going up and down, but now seems to be more stable. This patient is feeling much better today. Neurology Department evaluated this patient and they believe that probably this is more related to a migraine problem than ischemic event, which I agree with that. She has been having cyclic vomiting which probably is related also with migraines, I do believe this patient can be discharged today. I will just wait for the final Neurology recommendations so she can go home and follow up with Dr. Beckman as an outpatient. PHYSICAL EXAMINATION: Vital signs: Temperature 98.2 degrees, pulse 84, respiratory rate 16, blood pressure 106/74, oxygen saturation 96 on room air. HEENT: Head normocephalic no trauma. PERRLA. Neck: Is supple. No JVD. No masses. Central trachea. Chest: Clear to auscultation. No wheezing. No rales. Abdomen: Soft, nontender, nondistended. No hepatosplenomegaly. Extremities: No edema, no clubbing, no cyanosis. Neurological: She is alert. She is oriented x3. I do not see any focal deficits. LABORATORY: Sodium 137, potassium 4.1, chloride 99, bicarbonate 24, BUN 16, creatinine 0.7, glucose 184, calcium 9.6. DISCHARGE MEDICATIONS: Aspirin 81 mg p.o. daily, Lipitor 20 mg p.o. daily, XIGDUO XR 5 mg/1000 mg tablet p.o. b.i.d., SOLIQUA 26 units subcutaneous daily, lisinopril 20 mg p.o. at bedtime, and omeprazole 40 mg p.o. daily. TIME SPENT: Time discharging this patient was 20 minutes. cc: Brennan Escobar MD
--- NOTE | 2019-08-14 14:20 | PROGRESS NOTE ---
DATE: 08/14/2019 ROOM NO: 102 Ms. Castanon feels well today. She has not had any more episodes of language difficulty or other trouble. I agree with plans for discharge. We will make arrangements for office followup to discuss more specific headache management. I instructed her today to report if she has any further episodes of language disturbance or other neurologic problem. I encouraged her to be aggressive with management of her cerebrovascular risk factors. Thanks for asking Neurology to see Ms. Castanon. cc: Hasmukh Beckman III, MD
--- NOTE | 2019-08-14 19:43 | Carotid Study ---
DATE: 08/13/2019 REFERRING PROVIDER: RAMO Dumont READING PHYSICIAN: Kenji Rowell MD DRAFTER CASTINGS: Louie. INDICATION: Transient ischemic attack. FINDINGS: The common and internal carotid arteries were visualized with ultrasound bilaterally. There were no significant atherosclerotic changes or plaques, elevated velocities or turbulent flow visualized. The vessels were somewhat tortuous. The percent stenosis is 0% to 39% bilaterally, and the vertebral arteries are antegrade bilaterally. A solid-appearing nodule in the right thyroid was noted and measured at 1.0 x 1.1 cm. In the left thyroid lobe, there is a complex solid cystic nodule measuring 1.6 x 1.3 cm. INTERPRETATION: Minimal atherosclerotic disease in the carotid arteries without any significant stenoses. There are bilateral thyroid nodules which should be handled clinically, and if not previously known, then I would suggest a formal thyroid ultrasound for further evaluation. cc: MD Solo Pena CRNP
== END 2019-08-14 11:50 | disposition home or self-care (01) ==
LOC: 1N 17:35 → ED 17:35 → SUATTDRO 17:36
PROVIDERS: ATTEND Internal Medicine